=== PATIENT | female | born 2005 | race Two or more races ===

== ENCOUNTER 2023-07-20 17:31 | Observation (INO) | payer MEDICAID ==
[2023-07-20] MEDS ORDERED: PREN-96 PO (17:54)
[2023-07-20] MEDS ORDERED: ASPI-498 OR (17:54)
[2023-07-20] MEDS: LACTATED RINGER'S 1,000 ML IV ONE (18:27)
[2023-07-20] MEDS: ONDANSETRON HCL 4 MG/2 ML VIAL IV PRN (18:44)
[2023-07-20] MEDS: LACTATED RINGER'S 1,000 ML IV SCH (19:12)
== END 2023-07-21 00:26 | disposition home or self-care (01) ==
LOC: LDRP 17:31
PROVIDERS: ADMIT Obstetrics & Gynecology; ATTEND Obstetrics & Gynecology
DX: O47.03 False labor before 37 completed weeks of gestation, third trimester (principal); O21.2 Late vomiting of pregnancy; O36.8130 Decreased fetal movements, third trimester, not applicable or unspecified; O99.283 Endocrine, nutritional and metabolic diseases complicating pregnancy, third trimester; E86.0 Dehydration; O99.613 Diseases of the digestive system complicating pregnancy, third trimester; K52.9 Noninfective gastroenteritis and colitis, unspecified; Z3A.31 31 weeks gestation of pregnancy
CPT/HCPCS: 59025; 76805; 81002; 94760; 96361; 96374; G0378; J2405; 96360